=== PATIENT | male | born 1950 | race Caucasian/White ===

== ENCOUNTER 2020-08-24 07:19 | Day surgery (SDC) | payer MEDICARE, OTHER ==
[2020-08-24] MEDS ORDERED: Midazolam 1 MG/ML 2 ML SDV IV ONE (07:20)
[2020-08-24] MEDS ORDERED: Propofol 200 MG/20 ML SDV IV ONE (07:20)
[2020-08-24] MEDS ORDERED: Lactated Ringers 1,000 ML IV SCH (08:00)
[2020-08-24] MEDS ORDERED: Sodium Chloride 0.9% 10 ML Syringe FLUSH PRN (08:00)
--- NOTE | 2020-08-24 09:23 | PCM.OPNOTE ---
- General Post-Op/Procedure Note Date of Surgery/Procedure: 08/24/20 Operative Procedure(s): colonoscopy Findings: nl exam Pre Op Diagnosis: colon cancer screening Post-Op Diagnosis: nl exam Anesthesia Technique: MAC Primary Surgeon: Rickie Bradley Anesthesia Provider: Usha Patel Pathology: none Complications: None Condition: Good Free Text/Narrative:: see dictation #[id number]
--- NOTE | 2020-08-24 10:57 | OR ---
DATE OF OPERATION: 08/24/2020 SURGEON: Rickie Bradley MD PROCEDURE PERFORMED: Colonoscopy. PREOPERATIVE DIAGNOSIS: Need for colon cancer screening. POSTOPERATIVE DIAGNOSIS: Normal exam. INDICATIONS FOR PROCEDURE: This is a 69-year-old white male who presents for screening colonoscopy. He is currently without complaints. He was offered and accepted same. DESCRIPTION OF OPERATION: After an excellent IV sedation was administered, digital rectal exam was performed. No marked abnormality was noted. Flexible colonoscope was inserted and advanced to the cecum. Prep was excellent. The following findings were noted. Ascending colon, unremarkable. Transverse colon, unremarkable. Descending colon, unremarkable. Sigmoid and rectum, unremarkable. Colon was deflated as the scope was removed. The patient tolerated the procedure well, was taken to Recovery in good condition. RECOMMENDATIONS: Repeat colonoscopy in 10 years. /[id number] /MODL
== END 2020-08-24 10:36 | disposition home or self-care (01) ==
LOC: FB.SDS 07:19
PROVIDERS: ATTEND Surgery
DX: Z12.11 Encounter for screening for malignant neoplasm of colon (principal); E78.5 Hyperlipidemia, unspecified; I25.10 Atherosclerotic heart disease of native coronary artery without angina pectoris; Z95.5 Presence of coronary angioplasty implant and graft; Z79.899 Other long term (current) drug therapy; Z91.048 Other nonmedicinal substance allergy status; Z98.890 Other specified postprocedural states
CPT/HCPCS: 00812-QZ; J2250; J2704; J7120